=== PATIENT | male | born 1980 | race African-American/Black ===

== ENCOUNTER 2017-06-11 11:18 | Emergency (ER) | payer OTHER ==
[~2017-06-11] VITALS: Ht 190.5 cm; Wt 102.1 kg
[2017-06-11] MEDS ORDERED: MOBIC15 MG PO (14:35)
[2017-06-11 15:17] VITALS: BP 135/87
[2017-06-11] MEDS ORDERED: TRAMADOL 50 MG50 MG PO (15:21)
== END 2017-06-11 15:21 | disposition left against medical advice (07) ==
LOC: ER 11:18
DX: S16.1XXA Strain of muscle, fascia and tendon at neck level, initial encounter (principal); S09.90XA Unspecified injury of head, initial encounter; M25.511 Pain in right shoulder; Z53.21 Procedure and treatment not carried out due to patient leaving prior to being seen by health care provider; Z91.013 Allergy to seafood; W18.30XA Fall on same level, unspecified, initial encounter; Y93.89 Activity, other specified; Y92.89 Other specified places as the place of occurrence of the external cause; Y99.8 Other external cause status